=== PATIENT | female | born 1960 | race Hispanic/Latino ===

== ENCOUNTER 2019-07-18 19:27 | Observation (INO) | payer OTHER ==
--- NOTE | 2019-07-18 20:48 | PDOC.FPRHP ---
- History of Present Illness Chief Complaint: Left facial droop, arm weakness, slurred speech History of Present Illness: Patient is a 59 yo female who initially presented to the [facility] ER with complaint of left facial drooping, left arm weakness, and slurred speech. She was dx with suspected TIA and transferred to [facility] for futher evaluation. 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 She then called her to discuss these symptoms and he noticed she had slurred speech and told her he would come pick her up. Upon arrival her noticed that the patient additionally had a drooping left side of her face. Patient says she tried to drink some water but it kept dribbling out the side of her mouth. Patient and her decided to go to nearest ED in [place]. Her symptoms lasted a total of 10 minutes. Upon arrival in the [facility] ER the patient was asymptomatic. Currently in the [facility] ED she continues to remain asymptomatic and has no complaints. When asked what medications she takes the Patient does voice history that she is supposed to be taking Lipitor but that she has not been taking it because she feels "like I am on too many medications". Patient has also admitted to sometimes missing the dosing of her other medications for the same reason. Of note, patient states that she is scheduled for lap band removal surgery on 07/22/19 in [place], [place]. ED Course: In [place] ED was given ASA 325 mg & Eliquis 2.5 mg. Was asymptomatic upon arrival. Head CT negative. Transferred to [facility] but no further imaging or labs completed while in this ED. - Allergies/Adverse Reactions Allergies Allergy/AdvReac Type Severity Reaction Status Date / Time fluconazole [From Diflucan] Allergy Verified 12/03/13 00:53 latex Allergy Verified 12/03/13 00:54 - Home Medications Medication Instructions Recorded Confirmed Type Albuterol Sulfate [Albuterol 2 puff IH Q4HR PRN 12/03/13 12/03/13 History Sulfate HFA] Benzonatate [Tessalon] 200 mg PO TID PRN 12/03/13 12/03/13 History Carvedilol [Coreg] 12.5 mg PO BID 12/03/13 12/03/13 History Furosemide [Lasix] 40 mg PO BID 12/03/13 12/03/13 History Glyburide/Metformin HCl 1 tablet PO BID-WM 12/03/13 12/03/13 History [glyBURIDE/metFORMIN] Montelukast Sodium [Singulair] 10 mg PO DAILY 12/03/13 12/03/13 History Olmesartan Medoxomil [Benicar] 40 mg PO DAILY 12/03/13 12/03/13 History Comments: needs formal home med rec, list given above is out of date. Per patient she takes following meds with unknown dosing: Eliquis, ASA, Coreg, Entresto, Bumex, Glyburide, Metformin, Lantus 10 in PM, Regular insulin with meals, Lipitor, Spironolactone, among some unknown others. - History PMHx: T2DM, HFrEF, Afib s/p AICD placement & ablation, CAD, HTN, Gout PSHx: AICD in 2013, Ablation x 1, Cholecystectomy, Appendectomy, x 1, Lap band placement FHx: DM Social: Denies tobacco use. Uses EtOH socially. - Review of Systems General: denies: fever/chills, weight/appetite/sleep changes, fatigue Eyes: denies: vision changes ENT: denies: nasal congestion Respiratory: denies: cough, congestion, shortness of breath Cardiovascular: denies: chest pain, palpitation, edema Gastrointestinal: denies: nausea, vomiting, diarrhea, constipation, abdominal pain Genitourinary: denies: incontinence, dysuria Skin: denies: rashes, jaundice Musculoskeletal: denies: pain, tenderness, swelling Neurological: denies: numbness, syncope, weakness - Vital signs BP: 154/54 HR: 84 RR: 16 Tmax: 98.2F Pox: 95% on RA Wt: 112 kg - Physical Exam Constitutional: NAD, awake, alert and oriented, well developed -Constitutional: obese HEENT: normocephalic and atraumatic, PERRLA, EOMI, conjunctiva clear, grossly normal vision, TM's clear and intact, grossly normal hearing, normal nasal mucosa, MMM, oropharynx clear, good dention Neck: supple, FROM, no JVD, no thyromegaly Chest: no-tender to palpation Heart: RRR, normal S1/S2, no murmurs/rubs/gallops, pulses present, no edema Lungs: CTAB, no respiratory distress, good air movement, no rales/rhonchi, no wheezing, no retractions Abdomen: soft, non-tender, bowel sounds present, no masses/distention Musculoskeletal: normal structure, normal tone, ROM grossly normal Neurological: no focal deficit, CN II-XII intact, normal sensation Skin: good turgor, capillary refill <2 seconds -Skin: healing ulcer with scab on medial 1st toe left foot. Venous stasis dermatitis present bilaterally. Heme/Lymphatic: no unusual bruising or bleeding Psychiatric: normal mood and affect, intact recent and remote memory FMR H&P: Results - Labs Lab results: Glucose 320, Cr 2.02, GFR 25, Troponin 0.035 - Radiology Interpretation CT scan - head Status: report reviewed by me (done at [place] ED, no acute pathology) FMR H&P: A/P - Problem List (1) TIA (transient ischemic attack) Current Visit: Yes Status: Acute Code(s): G45.9 - TRANSIENT CEREBRAL ISCHEMIC ATTACK, UNSPECIFIED (2) HFrEF (heart failure with reduced ejection fraction) Current Visit: Yes Status: Acute Code(s): I50.20 - UNSPECIFIED SYSTOLIC ( CONGESTIVE) HEART FAILURE (3) Afib Current Visit: Yes Status: Acute Code(s): I48.91 - UNSPECIFIED ATRIAL FIBRILLATION Qualifiers: Atrial fibrillation type: unspecified chronic Qualified Code(s): I48.20 - Chronic atrial fibrillation, unspecified; I48.2 - Chronic atrial fibrillation (4) Diabetes mellitus Current Visit: Yes Status: Acute Code(s): E11.9 - TYPE 2 DIABETES MELLITUS WITHOUT COMPLICATIONS Qualifiers: Diabetes mellitus type: type 2 Diabetes mellitus half-way insulin use: with intermediate card tender use Diabetes mellitus complication status: with skin complications Diabetes mellitus complication detail: with foot ulcer Qualified Code(s): E11.621 - Type 2 diabetes mellitus with foot ulcer; L97.509 - Non-pressure chronic ulcer of other part of unspecified foot with unspecified severity; Z79.4 - group home (current) use of insulin - Plan 59 yo female with hx of TIA symptoms is admitted for further workup: #TIA vs CVA -currently asymptomatic -CT head negative at [place] ED -Will order MRI, Carotid Doppler, and Echo to be completed on AM 07/19 -defer CTA head/neck d/t contrast load with pt GFR 25 -obtain risk stratification labs: TSH, A1c, Lipid panel -Restart patient's home med: Lipitor -- pt says she does not take at home, although says she is supposed to from her PCP -Q4h neuro checks #T2DM -Continue home meds: Glyburide, Metformin -Accucheck ACHS -Moderate SSI -Consistent carb diet -monitor healing ulcer on left 1st toe #HFrEF -per patient, last echo approx. 1 year ago with EF 15-25% -Currently euvolemic -2500mL fluid restriction -Continue home meds: Coreg, Entresto, Spironolactone #AFib -s/p AICD placement in 2013 -continue home meds: Eliquis 2.5 mg BID #CAD -Continue home meds #HTN -Continue home meds #Elevated troponin -in [place] was 0.035, will repeat and trend -currently asymptomatic PPx SCD Diet HH, CC Code status: FULL Dispo: Admitted to observation on stroke unit. Will order risk stratification labs. Order Echo, MRI, carotid dopplers for AM. Continue to monitor with neuro checks q4hr. Anticipate LOS< 48 hours. FMR H&P: Upper Level - Pertinent history 59 yo F here with complaint of L sided facial weakness earlier today. Currently symptoms have resolved. She states that there was a 10 min period earlier today where she had L facial droop, numbness, and drooling which was seen by her a daughter. These symptoms spontaneously resolved after about 10 minutes. In the [facility] ED, CT brain was normal. Lab abnormalities there included a glucose of 320, Cr of 2.03, GFR of 25, and Trop of 0.035. PMHx CAD CHF DM2 pAfib s/p ablation HTN Gout Surgical Hx AICD placement Cardiac ablation Cholecystectomy C section Appendectomy Lap band Social Hx 1 pack year smoking history over 40 years ago Social etoh, no drugs - Pertinent findings See [facility] internship note for full ROS, PE, vitals, and labs ROS General denies fever or chills CV Denies MINER, dizziness, CP or palpitations Resp Denies SOB or cough GI Denies n/v/d/c or abdominal pain denies increased frequency or dysuria Neuro complains of L sided facial weakness and numbness, no resolved MSK denies any weakness or numbness in extremities PE General A&O x4, no acute distress HEENT NCAT CV RRR, no murmur Resp CTA Abd No TTP, no distension, normal BS Extremities ulcer medial L great toe. This is non tender, no erythema, no exudate Neuro no focal deficits, CN II-XII intact, normal strength and sensation - Plan Date/Time: 07/18/192047 I, Pedro Pablo Gil DO, have evaluated this patient and agree with findings/plan as outlined by [facility] internship resident. Pertinent changes/additions are listed here. 1.TIA vs CVA -Admit to stroke -MRI, carotid Doppler, and echo in the morning -TSH, A1c, and Lipid -Restart Lipitor as pt does not take at home, though it is written by PCP -Q4 neuro check 2.DM2 -Home meds -Accucheck ACHS -Mod SSI -Consistent carb diet 3.HFrEF -Currently euvolemic -2500mL fluid restriction -Continue home meds 4.CAD -Continue home meds 5.HTN -Home meds 6.Elevated trop -no CP, SOB, or diaphoresis -will trend, this is likely chronic PPx SCD Diet HH, CC Code Full
[2019-07-18] MEDS ORDERED: Acetaminophen 325 MG TAB PO PRN (21:57)
[2019-07-18] MEDS ORDERED: Ondansetron PF 4 MG/2 ML Vial IVP PRN (21:57)
[2019-07-18] MEDS ORDERED: Ondansetron ODT 4 MG TAB PO PRN (21:57)
[2019-07-18] MEDS ORDERED: Calcium Carbonate 500 MG ChewTAB PO PRN (21:57)
[2019-07-18] MEDS ORDERED: Dextrose 5% in Water 1,000 ML IV PRN (22:10)
[2019-07-18] MEDS ORDERED: Dextrose 50% Abboject 50 ML SYRINGE SLOW IVP PRN (22:10)
[2019-07-18] MEDS ORDERED: HumaLOG 300 UNITS/3 ML VIAL SC PRN (22:10)
[2019-07-18 22:17] VITALS: BMI 43.7
[2019-07-18 22:46] LABS: Troponin I 0.038 ng/mL (< 0.028)
[2019-07-18] MEDS ORDERED: Melatonin 3 MG TAB PO PRN (23:31)
[2019-07-19 05:56] LABS: #Basophils 0.1 thou/uL (0.0-0.2); #Eosinphils 0.4 thou/uL (0.0-0.7); #Lymphocytes 1.6 thou/uL (1.20-3.40); #Monocytes 0.4 thou/uL (0.11-0.59); #Neutrophils 3.2 thou/uL (1.40-6.50); %Eosinophils 7.3 % (0.0-10.0); %Lymphocytes 27.8 % (21.0-51.0); %Monocytes 6.9 % (0.0-10.0); Hemoglobin 11.9 g/dL (12.0-16.0); Mean Corpuscular HGB CONC 32.1 g/dL (32.0-36.0); Mean Corpuscular Hemoglobin 28.6 pg (27.0-31.0); Mean Corpuscular Volume 89.3 fL (78.0-98.0); Mean Platelet Volume 10.3 fL (7.4-10.4); Platelet Count 165 thou/uL (130-400); RBC Distribution Width 15.6 % (11.5-14.5); Red Blood Cell (RBC) Count 4.15 mill/uL (4.20-5.40); White Blood Cell (WBC) Count 5.7 thou/uL (4.8-10.8)
[2019-07-19 06:11] LABS: Hemoglobin A1c 9.7 % (4.0-6.0)
[2019-07-19 06:25] LABS: ALT (SGPT) 17 U/L (8-55); AST (SGOT) 17 U/L (5-34); Albumin 3.5 g/dL (3.5-5.0); Alkaline Phosphatase 111 U/L (40-110); Anion Gap 10 mmol/L (10-20); BUN (Urea Nitrogen) 40 mg/dL (9.8-20.1); Bilirubin, Total 0.3 mg/dL (0.2-1.2); Calc. Creatinine Clearance 59 mL/min (70-130); Calcium 9.1 mg/dL (7.8-10.44); Carbon Dioxide 29 mmol/L (22-29); Cardiac Risk 4.6 (Less than 4.5); Chloride 105 mmol/L (98-107); Cholesterol 179 mg/dl (< 200 Desired); Estimated GFR-MDRD 28; Globulin 3.2 g/dL (2.4-3.5); Glucose 214 mg/dL (70-105); HDL Cholesterol 39 mg/dL (>60 Neg Risk); LDL Cholesterol, Calculated 108 mg/dL; Potassium 4.1 mmol/L (3.5-5.1); Protein, Total 6.7 g/dL (6.0-8.3); Sodium 140 mmol/L (136-145); Triglycerides 162 mg/dL (Less than 150)
[2019-07-19] MEDS: HumaLOG 300 UNITS/3 ML VIAL SC PRN ×2 (06:45→12:40)
--- NOTE | 2019-07-19 06:49 | PDOC.FM ---
- Subjective Subjective: NAEO. No facial droop, weakness, numbness/tingling , slurred speech. Wants to get better to go home. No other complaints offered at this time. - Objective MAR Reviewed: Yes Vital Signs & Weight: Vital Signs (12 hours) Temp Pulse Resp BP BP Pulse Ox 07/19/19 04:00 97.6 F 64 16 123/56 L 95 07/19/19 00:00 97.3 F L 72 16 145/63 H 94 L 07/18/19 21:57 97.6 F 76 16 155/80 H 97 Weight Weight 111.947 kg Result Diagrams: 07/19/19 04:39 07/19/19 04:38 Phys Exam - Physical Examination Constitutional: NAD HEENT: PERRLA, moist MMs Respiratory: no wheezing, clear to auscultation bilateral Cardiovascular: RRR, no significant murmur Gastrointestinal: soft, non-tender Neurological: non-focal, moves all 4 limbs CN 2-12 grossly intact, no facial droop (baseline per ) Dx/Plan (1) Afib Code(s): I48.91 - UNSPECIFIED ATRIAL FIBRILLATION Status: Acute Qualifiers: Atrial fibrillation type: unspecified chronic Qualified Code(s): I48.20 - Chronic atrial fibrillation, unspecified; I48.2 - Chronic atrial fibrillation (2) Diabetes mellitus Code(s): E11.9 - TYPE 2 DIABETES MELLITUS WITHOUT COMPLICATIONS Status: Acute Qualifiers: Diabetes mellitus type: type 2 Diabetes mellitus intermodal customer service insulin use: with mcfp use Diabetes mellitus complication status: with skin complications Diabetes mellitus complication detail: with foot ulcer Qualified Code(s): E11.621 - Type 2 diabetes mellitus with foot ulcer; L97.509 - Non-pressure chronic ulcer of other part of unspecified foot with unspecified severity; Z79.4 - group home (current) use of insulin (3) HFrEF (heart failure with reduced ejection fraction) Code(s): I50.20 - UNSPECIFIED SYSTOLIC (CONGESTIVE) HEART FAILURE Status: Acute (4) TIA (transient ischemic attack) Code(s): G45.9 - TRANSIENT CEREBRAL ISCHEMIC ATTACK, UNSPECIFIED Status: Acute - Plan Plan: #TIA vs CVA -Pending MRI, carotid Doppler, and echo -a1c 9.7, will restart insulin -start atorvastatin, asa #MARICRUZ vs. CKD -gfr 28, pt reports history of CKD after surgery -hold metformin -monitor with BMP #IDDM2, uncontrolled -Will med rec & restart home meds, SS for now -Accucheck ACHS -Consistent carb diet -will need further outpatient regulation of this #HFrEF -Currently euvolemic -2500mL fluid restriction -Continue home meds #CAD -Continue home meds #HTN -Home meds #Elevated trop -no CP, SOB, or diaphoresis -will trend, this is likely chronic, tele monitor show NSR no other acute findings overnight dvt ppx: SCD Diet: HH, CC Code: Full Dispo: pending stroke workup, home with maximum medical mgmt if normal imaging findings Addendum - Attending - Attending Attestation Date/Time: 07/19/19 1450 I personally evaluated the patient and discussed the management with Dr. Meyer I agree with the History, Examination, Assessment and Plan documented above with any addition or exceptions noted below. Patient stable not able to proceed with MRI due to AICD. Patient with PMHX atrial fibrillation s/p ablation recommend continue eliquis and interrogate her AICD. Would stop Metformin given low GFR and f/u with her Applications Processor and PCP otherwise counseled to healthier diet and statin use. Patient stable to d/c home with close outpatient f/u, discussed and advised she delay gastric band removal given recent TIA.
[2019-07-19] MEDS ORDERED: Atorvastatin Calcium 20 MG TAB PO SCH (07:00)
[2019-07-19] MEDS ORDERED: Aspirin 81 mg Enteric Coated Tablet PO SCH (09:00)
--- NOTE | 2019-07-19 09:46 | ULT ---
BILATERAL CAROTID DUPLEX ULTRASOUND: HISTORY: TIA TECHNIQUE: Grayscale, color-flow and spectral Doppler ultrasound imaging of the extracranial carotid artery syst ems was performed bilaterally. FINDINGS: There is plaque formation on both sides The peak systolic velocity in the right ICA measures 63 cm/s with an end-diastolic velocity of 22 cm/ s and a systolic ratio of 0.76. The peak systolic velocity in the left ICA measures 78 cm/s with an end-diastolic velocity of 29 cm/s and a systolic ratio of 1.0. Flow in both vertebral arteries remains antegrade. IMPRESSION: No evidence of hemodynamically significant stenosis
[2019-07-19 11:59] VITALS: BP 136/64; TEMP 97.9
[2019-07-19] MEDS ORDERED: FLU VACC QS2019-20(6MOS UP)/PF 60 MCG/0.5 ML SYRINGE IM ONE (21:00)
[2019-07-19] MEDS ORDERED: Atorvastatin Calcium 40 MG TAB PO SCH (21:00)
--- NOTE | 2019-07-20 11:55 | DIS ---
DATE OF ADMISSION: 07/18/2019 DATE OF DISCHARGE: 07/19/2019 DISCHARGE ATTENDING: Dr. Aiden Kuo. RESIDENT: Tiffany Meyer, PGY2 PRIMARY DIAGNOSES: 1. Transient ischemic attack. 2. Acute kidney injury versus chronic kidney disease. 3. Uncontrolled insulin dependent diabetes mellitus 2. 4. Heart failure with reduced ejection fraction. 5. Acute kidney injury. 6. Hypertension. 7. Indeterminate troponin. 8. Atrial fibrillation, on anticoagulation. 9. Elevated troponin, which down trended. CONSULTS: None. PROCEDURES AND IMAGIN. Echocardiogram, TTE: Decreased ejection fraction of 20% to 25%. Moderately enlarged right ventricular cavity. Defibrillator wire in right ventricle. Left atrium moderately dilated. Moderate mitral regurg. [id number] tricuspid regurg. Overall left ventricular function is severely depressed. 2. Carotid Doppler study. No evidence of hemodynamically significant stenosis. 3. Brain CT, no acute intracranial process. DISCHARGE MEDICATIONS: 1. Aspirin 81 mg. 2. Atorvastatin 40 mg p.o. at bedtime. 3. Entresto one tab p.o. b.i.d. 4. Amiodarone 400 mg one tab p.o. b.i.d. 5. Albuterol sulfate INH inhaled q.6 hours p.r.n. for wheezing. 6. Januvia one tab p.o. daily. 7. Eliquis one tab p.o. b.i.d. 8. Gabapentin 600 mg one cap p.o. b.i.d. 9. Amaryl one tab p.o. daily. 10. Lyrica one cap p.o. b.i.d. 11. Meclizine 25 mg one tab p.o. b.i.d. 12. Lactulose 15 mL p.o. b.i.d. p.r.n. constipation. 13. Lantus 5 to 10 units subcu b.i.d. 14. Benicar 40 mg p.o. b.i.d. 15. Coreg 6.25 mg p.o. b.i.d. 16. Singulair 10 mg one tab p.o. daily. 17. Colchicine 1 tab p.o. b.i.d. 18. Bumex 2 tabs p.o. b.i.d. Discontinue medications: Metformin (due to renal function) HISTORY OF PRESENT ILLNESS/HOSPITAL COURSE: Ms. Nelly Mantilla is a 59-year-old female with hypertension, heart failure with reduced ejection fraction and controlled type 2 diabetes, who presented to the ER after a 10-minute episode of left facial droop and left arm weakness and slurred speech. CT was negative for any acute hemorrhagic bleed. She was admitted for suspected TIA with further stroke workup. Due to her pacemaker, she was not compatible for MRI imaging. Carotid Dopplers were negative. Echo showed heart failure with reduced ejection fraction; she has a known history of heart failure, no prior echo in records to compare. Neurologically she returned to baseline during this hospitalization. She was started on maximum medical management including aspirin, statin, and recommended for better control of her diabetes. It is likely that the patient experienced a TIA based on her history especially with poor control of medical risk factors. MARICRUZ vs. CKD4: It is recommended that due to her low GFR, she should hold her metformin until she follows up with her PCP and to establish with a notching machine operator DISPOSITION: Stable. DIET: Heart healthy, diabetic diet. ACTIVITY: Ad ilya as tolerated. DISCHARGE INSTRUCTIONS: 1. Location: Home. 2. Diet: As listed above. 3. Followup: Please follow up with PCP in 1 to 2 days. a. Please follow up to establish with a notching machine operator. b. Please follow up with your sawdust drier. Job ID: [id number] MTDD
== END 2019-07-19 15:51 | disposition home or self-care (01) ==
LOC: ERS 19:27 → 2SE 21:53
PROVIDERS: ADMIT Family Medicine; ATTEND Family Medicine
DX: G45.9 Transient cerebral ischemic attack, unspecified (principal); I11.0 Hypertensive heart disease with heart failure; I50.21 Acute systolic (congestive) heart failure; M10.9 Gout, unspecified; I48.20 Chronic atrial fibrillation, unspecified; I25.10 Atherosclerotic heart disease of native coronary artery without angina pectoris; R79.89 Other specified abnormal findings of blood chemistry; I87.2 Venous insufficiency (chronic) (peripheral); E11.621 Type 2 diabetes mellitus with foot ulcer; L97.529 Non-pressure chronic ulcer of other part of left foot with unspecified severity; N17.9 Acute kidney failure, unspecified; E66.9 Obesity, unspecified; Z68.41 Body mass index [BMI] 40.0-44.9, adult; Z87.891 Personal history of nicotine dependence; Z79.01 Long term (current) use of anticoagulants; Z79.4 Long term (current) use of insulin; Z79.899 Other long term (current) drug therapy; Z88.8 Allergy status to other drugs, medicaments and biological substances; Z91.040 Latex allergy status; Z95.810 Presence of automatic (implantable) cardiac defibrillator
CPT/HCPCS: 36415; 36416; 80053; 80061; 83036; 84443; 84484; 85025; 90471; 90686; 90732; 93306; 93880; 99285; G0008; G0009; G0378